=== PATIENT | female | born 1970 | race African-American/Black ===

== ENCOUNTER → 2019-01-28 | Outpatient (CLI) | payer OTHER | LOC: OD 14:54 | PROVIDERS: ATTEND Nurse Practitioner Acute Care | DX: R21 Rash and other nonspecific skin eruption (principal) | CPT/HCPCS: 87250 ==

== ENCOUNTER 2019-03-21 06:22 | Emergency (ER) | payer OTHER ==
[2019-03-21 08:40] LABS: ABSOLUTE EOSINOPHILS # (AUTO) 0.2 10^3/uL (0.0-0.6); ABSOLUTE LYMPHOCYTES (AUTO) 1.5 10^3/uL (0.5-4.7); ABSOLUTE MONOCYTES (AUTO) 0.3 10^3/uL (0.1-1.4); ABSOLUTE NEUT (AUTO) 2.3 10^3/uL (1.7-8.2); BASOPHILS % (AUTO) 0.9 % (0-2); EOSINOPHILS % (AUTO) 4.3 % (0-6); HEMATOCRIT 39.5 % (36.0-47.0); HEMOGLOBIN 13.2 g/dL (12.0-15.5); LYMPHOCYTES % (AUTO) 34.9 % (13-45); MEAN CORPUSCULAR HEMOGLOBIN 29.4 pg (27.0-33.4); MEAN CORPUSCULAR HGB CONC 33.5 g/dL (32.0-36.0); MEAN CORPUSCULAR VOLUME 88 fl (80-97); MONOCYTES % (AUTO) 6.3 % (3-13); PLATELET COUNT 235 10^3/uL (150-450); RED CELL DISTRIBUTION WIDTH 13.9 % (11.5-14.0); SEGMENTED NEUTROPHILS % (AUTO) 53.6 % (42-78); TOTAL CELLS COUNTED % (AUTO) 100 %; WHITE BLOOD COUNT 4.3 10^3/uL (4.0-10.5)
[2019-03-21 09:00] LABS: ALANINE AMINOTRANSFERASE 23 U/L (9-52); ALBUMIN 3.7 g/dL (3.5-5.0); ALKALINE PHOSPHATASE 83 U/L (38-126); ANION GAP 6 (5-19); ASPARTATE AMINO TRANSFERASE 18 U/L (14-36); BILIRUBIN,DIRECT 0.2 mg/dL (0.0-0.4); BILIRUBIN,TOTAL 0.5 mg/dL (0.2-1.3); BLOOD UREA NITROGEN 10 mg/dL (7-20); CALCIUM 9.8 mg/dL (8.4-10.2); CARBON DIOXIDE 32 mmol/L (22-30); CHLORIDE 106 mmol/L (98-107); GLUCOSE 108 mg/dL (75-110); SODIUM 143.9 mmol/L (137-145); TOTAL PROTEIN 6.9 g/dL (6.3-8.2)
[2019-03-21 09:01] LABS: C-REACTIVE PROTEIN < 5.0 mg/L (<10.0)
[2019-03-21 09:27] VITALS: BP 123/75
--- NOTE | 2019-03-21 10:45 | ER Document Report ---
Entered by RENETTA HASKINS SCRIBE 03/21/19 0822 Acting as scribe for:DMITRIY HOWELL MD ED Extremity Problem, Lower - General Chief Complaint: Leg Pain Stated Complaint: LEG PROBLEM Time Seen by Provider: 03/21/19 07:51 Primary Care Provider: ELENA GOULD NP [Primary Care Provider] - Follow up as needed Mode of Arrival: Ambulatory Information source: Patient Notes: Patient is a 48 year old female presenting to the emergency department complaining of left lower extremity swelling. She states she began to have anterior lateral leg pain that radiates into her ankle and anterior foot 2 days ago. She states the pain is exacerbated with standing. She states she is normally on her feet further stating she does housekeeping at [employer]. She reports adding a new walking workout routine a little over a week ago. She denies any left calf pain or recent injuries. TRAVEL OUTSIDE OF THE [place] IN LAST 30 DAYS: No Past Medical History - General Information source: Patient - Social History Smoking Status: Never Smoker Cigarette use (# per day): No Chew tobacco use (# tins/day): No Smoking Education Provided: No Frequency of alcohol use: None Family History: Reviewed & Not Pertinent Patient has suicidal ideation: No Patient has homicidal ideation: No - Past Medical History Cardiac Medical History: Reports: Hx Hypertension EENT Medical History: Reports: Eyes - BL eye surgery Endocrine Medical History: Reports: Hx Diabetes Mellitus Type 2 Past Surgical History: Reports: Hx Gynecologic Surgery - secondary ectopic Review of Systems - Review of Systems Constitutional: No symptoms reported EENT: No symptoms reported Cardiovascular: No symptoms reported Respiratory: No symptoms reported Gastrointestinal: No symptoms reported Genitourinary: No symptoms reported Female Genitourinary: No symptoms reported Musculoskeletal: See HPI Skin: No symptoms reported Hematologic/Lymphatic: No symptoms reported Neurological/Psychological: No symptoms reported -: Yes All other systems reviewed and negative Physical Exam - Vital signs Vitals: Temp Pulse Resp BP Pulse Ox 97.5 F 62 17 137/81 H 100 03/21/19 06:34 03/21/19 06:34 03/21/19 06:34 03/21/19 06:34 03/21/19 06:34 - Notes Notes: GENERAL: Alert, interacts well. No acute distress. HEAD: Normocephalic, atraumatic. EYES: Pupils equal, round, and reactive to light. Extraocular movements intact. ENT: Oral mucosa moist, tongue midline. NECK: Full range of motion. Supple. Trachea midline. LUNGS: Clear to auscultation bilaterally, no wheezes, rales, or rhonchi. No respiratory distress. HEART: Regular rate and rhythm. No murmurs, gallops, or rubs. ABDOMEN: Soft, non-tender. Non-distended. Bowel sounds present in all 4 quadrants. No guarding, rigidity, or rebound. EXTREMITIES: Moves all 4 extremities spontaneously. Swelling to the LLE, no tenderness to the calf. NEUROLOGICAL: Alert and oriented x3. Normal speech. PSYCH: Normal affect, normal mood. SKIN: Warm, dry, normal turgor. No rashes or lesions noted. Course - Re-evaluation Re-evalutation: 03/21/19 09:12 The patient's d-dimer is 0.27 she has no calf tenderness or swelling. All of her pain is in the anterior distal leg going down over the anterior ankle and foot. The pain is made worse with walking in the anterior areas with no calf pain on walking. I suspect this is overuse syndrome Related to her new exercise/walking program she started about a week ago. - Vital Signs Vital signs: Temp Pulse Resp BP Pulse Ox 97.5 F 62 17 137/81 H 100 03/21/19 06:34 03/21/19 06:34 03/21/19 06:34 03/21/19 06:34 03/21/19 06:34 - Laboratory Result Diagrams: 03/21/19 08:22 03/21/19 08:22 Laboratory results interpreted by me: 03/21/19 08:22 Carbon Dioxide 32 H Discharge - Discharge Clinical Impression: Pain of left lower extremity, Overuse syndrome Condition: Stable Disposition: HOME, SELF-CARE Additional Instructions: Overuse Syndrome Overuse syndrome or repetitive-motion syndrome is inflammation caused by repeated activity. Many daily activities cause minor, microscopic injury to muscles, tendons, and ligaments. With adequate rest, the tissues repair themselves. But sometimes a repetitive movement or new activity is too much for the tissue to tolerate, and inflammation results. Examples of overuse syndrome are tendonitis, bursitis, muscle inflammation, and joint capsulitis. Rest. Stop or decrease the activity that created the problem. You may need a sling or splint. For the first couple of days after symptoms begin, ice packs can be helpful. When the symptoms start improving, you can switch to hot packs followed by stretching and motion of the painful area. Antiinflammatory medicine such as ibuprofen can help. Call the doctor or return if there is fever, increasing pain, spreading redness, numbness, weakness, or other significant change. The pain you are experiencing seems to be what we call an overuse syndrome re lated to increased repeated trauma to the muscles and tendons in your anterior lower leg at the ankle region. It does not involve the deep vein system and a blood test for blood clots was negative. Try taking Tylenol and ibuprofen for the pain. Elevate your left leg today to help reduce the swelling. Use moist heat to the painful areas in the anterior lower leg. Try to limit walking and stop your exercise program for the next 7 to 10 days. Follow-up with your primary care provider if not improving. RETURN TO THE EMERGENCY ROOM IF ANY NEW OR WORSENING SYMPTOMS. Forms: Return to Work Referrals: ELENA GOULD NP [Primary Care Provider] - Follow up as needed Scribe Attestation: 03/21/19 09:16 I personally performed the services described in the documentation, reviewed and edited the documentation which was dictated to the scribe in my presence, and it accurately records my words and actions. I personally performed the services described in the documentation, reviewed and edited the documentation which was dictated to the scribe in my presence, and it accurately records my words and actions.
== END 2019-03-21 09:27 | disposition home or self-care (01) ==
LOC: ER 06:22
DX: M79.662 Pain in left lower leg (principal); M79.89 Other specified soft tissue disorders; I10 Essential (primary) hypertension; E11.9 Type 2 diabetes mellitus without complications
CPT/HCPCS: 36415; 80053; 85025; 85379; 86140; 99283